=== PATIENT | female | born 1995 | race Hispanic/Latino ===

== ENCOUNTER 2021-10-11 19:41 | Inpatient (IN) | payer BC ==
[~2021-10-11 19:41] MED LIST: Bupivacaine 0.25% HCL 30 ML VIAL ONE; Bupivacaine PF 0.5% 30 ML VIAL ONE; Lidocaine 2% MPF 10 ML AMP (For Epidural Use) ONE
[2021-10-11 20:41] LABS: Fetal Membranes Rupture RUPTURE DETECTED (No Rupture)
[2021-10-11] MEDS: Lactated Ringer's 1,000 ML IV SCH (22:03)
[2021-10-11 22:16] VITALS: BMI 36.9
[2021-10-11] MEDS ORDERED: Acetaminophen 500 MG TAB PO PRN (22:16)
[2021-10-11] MEDS ORDERED: Promethazine HCl 25 MG/ML VIAL IM PRN (22:16)
[2021-10-11] MEDS ORDERED: Lidocaine 1% (PF) 30 ML VIAL SC PRN (22:16)
[2021-10-11] MEDS ORDERED: Ondansetron PF 4 MG/2 ML Vial IVP PRN (22:16)
[2021-10-11] MEDS ORDERED: Ibuprofen 800 MG TAB PO PRN (22:16)
[2021-10-11] MEDS ORDERED: Misoprostol 200 MCG TAB PR PRN (22:16)
[2021-10-11] MEDS ORDERED: hydrALAZINE 20 MG/ML VIAL SLOW IVP PRN (22:16)
[2021-10-11] MEDS ORDERED: NS w/ Oxytocin 30 units 500 ML IV SCH ×2 (22:30)
[2021-10-11] MEDS ORDERED: Misoprostol 100 MCG TAB VAG SCH (22:30)
[2021-10-11 23:03] LABS: Hemoglobin 13.3 g/dL (12.0-15.5); Mean Corpuscular HGB CONC 34.3 g/dL (32.0-36.0); Mean Corpuscular Volume 87.6 fl (81.6-98.3); Mean Platelet Volume 13.2 fl (7.4-10.4); Platelet Count 238 10x3/uL (150-450); RBC Distribution Width 14.3 % (11.5-14.5); Red Blood Cell (RBC) Count 4.43 10x6/uL (3.90-5.03); White Blood Cell (WBC) Count 12.6 10x3/uL (3.5-10.5)
[2021-10-11 23:35] LABS: Syphilis Antibody Nonreactive (Nonreactive); Syphilis Antibody Index 0.06 S/CO (<1.00 Non-Reactive)
[2021-10-11 23:37] LABS: Hep B Surf Ag Non-Reactive S/CO (NonReactive)
[2021-10-11 23:46] LABS: HBSAg Index 0.19 S/CO (0-0.99)
[2021-10-12] MEDS ORDERED: Butorphanol Tartrate 1 MG/ML VIAL ONE (00:08)
[2021-10-12] MEDS: Butorphanol Tartrate 1 MG/ML VIAL SLOW IVP PRN ×2 (00:16→03:05)
[2021-10-12] MEDS ORDERED: Fentanyl 2 mcg/Bup 0.1% Cadd 100 ML ONE (03:02)
[2021-10-12] MEDS: Lactated Ringer's 1,000 ML IV SCH ×2 (03:15→04:32)
[2021-10-12] MEDS ORDERED: ePHEDrine Sulfate 50 MG/10 ML VIAL SLOW IVP PRN (04:06)
[2021-10-12] MEDS ORDERED: Ondansetron PF 4 MG/2 ML Vial IVP PRN ×3 (04:06→17:43)
[2021-10-12] MEDS ORDERED: Promethazine HCl 25 MG/ML VIAL IM PRN ×2 (04:06→16:30)
[2021-10-12] MEDS ORDERED: Acetaminophen 325 MG TAB PO PRN (04:06)
[2021-10-12] MEDS ORDERED: Lactated Ringer's 500 ML IV PRN (04:06)
[2021-10-12] MEDS ORDERED: Naloxone HCl 0.4 mg/ml Vial IVP PRN ×4 (04:06→16:30)
[2021-10-12] MEDS ORDERED: diphenhydrAMINE 50 MG/ML VIAL IVP PRN ×2 (04:06→16:30)
[2021-10-12] MEDS ORDERED: Hydrocerin (Eucerin) Cream 120 gm Jar TOP PRN ×2 (04:06→16:30)
[2021-10-12] MEDS ORDERED: Communication Order-Pharmacy FS SCH ×2 (04:15→16:30)
[2021-10-12] MEDS ORDERED: Fentanyl 2 mcg/Bupivacaine 0.1% Cassette 100 ML EPIDURAL SCH (04:15)
[2021-10-12] MEDS ORDERED: Azithromycin 500 MG VIAL ONE (13:58)
[2021-10-12] MEDS ORDERED: Bicitra 30 ML UDCUP PO PRN (13:58)
[2021-10-12] MEDS ORDERED: Famotidine/PF 20 mg/2ml Vial SLOW IVP PRN (13:58)
[2021-10-12] MEDS ORDERED: Clindamycin/D5W 900 MG in Premix Bag 1 BAG IVPB SCH (14:00)
[2021-10-12] MEDS ORDERED: Clindamycin/D5W 900 mg/50 ml Premix Bag ONE (14:03)
[2021-10-12] MEDS ORDERED: Famotidine/PF 20 mg/2ml Vial ONE (14:05)
[2021-10-12] MEDS ORDERED: Morphine PF 10 MG/10 ML VIAL ONE (14:13)
[2021-10-12] MEDS ORDERED: Dexamethasone 4 mg/ml Vial ONE (14:13)
[2021-10-12] MEDS ORDERED: Ondansetron PF 4 MG/2 ML Vial ONE (14:13)
[2021-10-12] MEDS ORDERED: Ketorolac Tromethamine 30 MG/ML VIAL ONE (14:14)
[2021-10-12] MEDS ORDERED: Oxytocin 10 UNITS/ML VIAL ONE (14:14)
[2021-10-12] MEDS ORDERED: Fentanyl 100 MCG/2 ML VIAL ONE (14:43)
[2021-10-12] MEDS ORDERED: Ketamine 50 MG/ML (10ML VIAL) ONE (14:46)
[2021-10-12] MEDS ORDERED: Ondansetron HCl/PF 4 MG/2 ML Vial IVP PRN (16:30)
[2021-10-12] MEDS ORDERED: Ketorolac Tromethamine 30 MG/ML VIAL IVP SCH (16:30)
[2021-10-12] MEDS ORDERED: Fentanyl 100 MCG/2 ML VIAL SLOW IVP PRN (16:30)
[2021-10-12] MEDS ORDERED: Ketorolac Tromethamine 30 MG/ML VIAL IVP PRN (16:30)
[2021-10-12] MEDS ORDERED: Meperidine HCl/PF 25 MG/ML VIAL SLOW IVP PRN (16:30)
[2021-10-12] MEDS ORDERED: Naloxone HCl 0.4 mg/ml Vial IV PRN (16:30)
[2021-10-12] MEDS ORDERED: Promethazine HCl 25 MG SUPP PR PRN (16:30)
[2021-10-12] MEDS ORDERED: HYDROmorphone 2 MG/ML VIAL SLOW IVP PRN (16:30)
[2021-10-12] MEDS ORDERED: Boostrix 0.5 ML (Tdap) VIAL IM ONE (17:43)
[2021-10-12] MEDS ORDERED: hydrALAZINE 20 MG/ML VIAL SLOW IVP PRN (17:43)
[2021-10-12] MEDS ORDERED: Lanolin Ointment 7 GM TUBE TOP PRN (17:43)
[2021-10-12] MEDS ORDERED: diphenhydrAMINE 25 MG CAP PO PRN (17:43)
[2021-10-12] MEDS ORDERED: HYDROcodone/Acetaminophen 5/325 mg Tablet PO PRN (17:43)
[2021-10-12] MEDS ORDERED: Bisacodyl 10 MG SUPP PR PRN (17:43)
[2021-10-12] MEDS ORDERED: NS w/ Oxytocin 30 units 500 ML IV SCH (17:43)
[2021-10-12] MEDS: Ferrous Sulfate 325 MG TAB PO SCH (20:32)
[2021-10-12] MEDS: Docusate Calcium (SURFAK) 240 MG CAP PO SCH (21:27)
[2021-10-12] MEDS: Ibuprofen 800 MG TAB PO SCH (21:27)
[2021-10-13] MEDS: Ibuprofen 800 MG TAB PO SCH ×3 (04:48→20:15)
[2021-10-13 05:34] LABS: Hemoglobin 10.7 g/dL (12.0-15.5); Mean Corpuscular HGB CONC 33.5 g/dL (32.0-36.0); Mean Corpuscular Hemoglobin 29.9 pg (27.0-33.0); Mean Corpuscular Volume 89.1 fl (81.6-98.3); Mean Platelet Volume 12.8 fl (7.4-10.4); Platelet Count 206 10x3/uL (150-450); RBC Distribution Width 14.3 % (11.5-14.5); Red Blood Cell (RBC) Count 3.58 10x6/uL (3.90-5.03); White Blood Cell (WBC) Count 14.7 10x3/uL (3.5-10.5)
[2021-10-13] MEDS ORDERED: Nystatin Cream 15 GM TUBE TOP SCH ×2 (09:00)
[2021-10-13] MEDS: Prenatal Vitamin 1 TAB PO SCH (09:29)
[2021-10-13] MEDS: HYDROcodone/Acetaminophen 5/325 mg Tablet PO PRN ×3 (09:29→19:13)
[2021-10-13] MEDS: Simethicone Chewable 80 MG TAB PO PRN ×2 (09:29→19:13)
[2021-10-13] MEDS: Ferrous Sulfate 325 MG TAB PO SCH ×2 (09:30→21:00)
[2021-10-13] MEDS: Docusate Calcium (SURFAK) 240 MG CAP PO SCH ×2 (09:30→20:15)
[2021-10-14] MEDS: Ibuprofen 800 MG TAB PO SCH ×3 (04:01→20:09)
[2021-10-14] MEDS: Ferrous Sulfate 325 MG TAB PO SCH ×2 (07:56→20:11)
[2021-10-14] MEDS: Prenatal Vitamin 1 TAB PO SCH (08:36)
[2021-10-14] MEDS: Docusate Calcium (SURFAK) 240 MG CAP PO SCH ×2 (08:36→20:09)
[2021-10-14] MEDS: Simethicone Chewable 80 MG TAB PO PRN (08:38)
[2021-10-14] MEDS: HYDROcodone/Acetaminophen 5/325 mg Tablet PO PRN (18:21)
[2021-10-15] MEDS: Ibuprofen 800 MG TAB PO SCH (04:29)
[2021-10-15] MEDS: Ferrous Sulfate 325 MG TAB PO SCH (07:27)
[2021-10-15 07:46] VITALS: BP 114/66; TEMP 98.8
[2021-10-15] MEDS: Prenatal Vitamin 1 TAB PO SCH (08:28)
[2021-10-15] MEDS: Docusate Calcium (SURFAK) 240 MG CAP PO SCH (08:28)
== END 2021-10-15 11:17 | disposition home or self-care (01) | DRG 787 ==
LOC: CSHLD/OP 19:41 → CSHLD 22:36 → CSHPP 10-12 17:17
PROVIDERS: ADMIT Obstetrics & Gynecology; ATTEND Obstetrics & Gynecology
PROC: 10D00Z1 Extraction of Products of Conception, Low, Open Approach (ICD-10-PCS; principal; 2021-10-12)
PROC: 10H07YZ Insertion of Other Device into Products of Conception, Via Natural or Artificial Opening (ICD-10-PCS; 2021-10-12)
PROC: 4A1HXCZ Monitoring of Products of Conception, Cardiac Rate, External Approach (ICD-10-PCS; 2021-10-12)
PROC: 4A1HXFZ Monitoring of Products of Conception, Cardiac Rhythm, External Approach (ICD-10-PCS; 2021-10-12)
DX: O62.1 Secondary uterine inertia (principal); Z3A.39 39 weeks gestation of pregnancy; Z37.0 Single live birth; D62 Acute posthemorrhagic anemia; O76 Abnormality in fetal heart rate and rhythm complicating labor and delivery; O77.0 Labor and delivery complicated by meconium in amniotic fluid; O69.81X0 Labor and delivery complicated by cord around neck, without compression, not applicable or unspecified; O90.81 Anemia of the puerperium
CPT/HCPCS: 36415; 51702; 84112; 85027; 86780; 86850; 86870; 86900; 86901; 87340; 99285; J0595; J1100; J1580; J1885; J2274; J2405; J2590; J3010; J3490; J7120; S0020